=== PATIENT | male | born 1955 | race Caucasian/White ===

== ENCOUNTER 2020-12-01 16:36 | Inpatient (IN) | payer MEDICARE, OTHER ==
[~2020-12-01 16:36] MED LIST: Iopamidol-370 76% 500 ML 1 ML ONE
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
[2020-12-01 16:58] LABS: #Basophils 0.1 thou/uL (0.0-0.2); #Lymphocytes 1.8 thou/uL (1.20-3.40); #Monocytes 0.7 thou/uL (0.11-0.59); #Neutrophils 7.1 thou/uL (1.40-6.50); %Basophils 0.6 % (0.0-1.0); %Eosinophils 0.4 % (0.0-10.0); %Lymphocytes 18.7 % (21.0-51.0); %Monocytes 7.1 % (0.0-10.0); %Neutrophils 73.2 % (42.0-75.0); Hemoglobin 12.5 g/dL (14.0-18.0); Mean Corpuscular HGB CONC 31.5 g/dL (32.0-36.0); Mean Corpuscular Hemoglobin 22.1 pg (27.0-31.0); Mean Corpuscular Volume 70.3 fL (78.0-98.0); Mean Platelet Volume 6.9 fL (7.4-10.4); Platelet Count 506 thou/uL (130-400); RBC Distribution Width 13.7 % (11.5-14.5); Red Blood Cell (RBC) Count 5.65 mill/uL (4.70-6.10); White Blood Cell (WBC) Count 9.7 thou/uL (4.8-10.8)
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
[2020-12-01 17:05] LABS: ALT (SGPT) 28 U/L (8-55); AST (SGOT) 23 U/L (5-34); Albumin 3.8 g/dL (3.4-4.8); Alcohol Less than 10 mg/dL (Less than 10); Alkaline Phosphatase 56 U/L (40-110); Anion Gap 20 mmol/L (10-20); BUN (Urea Nitrogen) 11 mg/dL (8.4-25.7); Bilirubin, Total 0.7 mg/dL (0.2-1.2); Calc. Creatinine Clearance 0 mL/min (70-130); Calcium 8.5 mg/dL (7.8-10.44); Carbon Dioxide 23 mmol/L (23-31); Chloride 85 mmol/L (98-107); Globulin 3.2 g/dL (2.4-3.5); Glucose 134 mg/dL (80-115); Sodium 125 mmol/L (136-145)
[2020-12-01 17:13] LABS: Potassium 2.7 mmol/L (3.5-5.1)
[2020-12-01 17:17] LABS: Hypochromia SLIGHT = 6-15 cells (100X) (0-5/hpf); MDiff Complete? YES; Microcytosis MODERATE=15-30 cells (100X) (0-5/hpf); Platelet Morphology Comment Appears Increased; Polychromasia SLIGHT = 2-3 cells (100X) (0-2/hpf)
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
[2020-12-01] MEDS ORDERED: Potassium Chloride 20 MEQ TAB ONE ×2 (17:32→17:47)
[2020-12-01 18:22] LABS: SARS-CoV-2 NAA Rapid Test DETECTED (NotDetected)
[2020-12-01] MEDS ORDERED: Ondansetron PF 4 MG/2 ML Vial IVP PRN (18:42)
[2020-12-01] MEDS ORDERED: Senokot S 8.6-50 MG TAB PO PRN (18:42)
[2020-12-01 19:48] LABS: Bilirubin Negative (Negative); Blood, Urine Negative (Negative); Clarity Clear (Clear); Glucose, Urine (Dipstick) Normal (Negative); Ketone, Urine 60 mg/dL (Negative); Leukocyte Negative Leu/uL (Negative); Nitrite Negative (Negative); Protein, Urine (Dipstick) Negative (Neg-Trace); Urobilinogen Normal mg/dL (Less than 2); pH, Urine 6.5 (5.0-9.0)
[2020-12-01] MEDS ORDERED: Lorazepam 2 MG/ML VIAL SLOW IVP PRN (19:53)
[2020-12-01 20:00] LABS: Amphetamine Not Detected (NotDetected); Barbiturates Screen Not Detected (NotDetected); Benzodiazepine Screen Not Detected (NotDetected); Cocaine Metabolite Screen Not Detected (NotDetected); Medtox Control Line Valid? VALID (VALID); Medtox Reader # READER 1; Methadone Not Detected (NotDetected); Methamphetamine Not Detected (NotDetected); Opiate Screen Not Detected (NotDetected); Oxycodone Screen Not Detected (NotDetected); Phencyclidine (PCP) Not Detected (NotDetected); THC/Cannabinoid Screen Detected (NotDetected); Tricyclic Screen Not Detected (NotDetected)
[2020-12-01] MEDS ORDERED: Potassium Citrate 10 MEQ TAB PO SCH (20:00)
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
[2020-12-01 22:01] LABS: Anion Gap 12 mmol/L (10-20); BUN (Urea Nitrogen) 10 mg/dL (8.4-25.7); Calc. Creatinine Clearance 0 mL/min (70-130); Carbon Dioxide 28 mmol/L (23-31); Chloride 88 mmol/L (98-107); Glucose 139 mg/dL (80-115); Sodium 125 mmol/L (136-145)
[2020-12-01 22:07] LABS: Potassium 2.8 mmol/L (3.5-5.1); Troponin I Less than 0.010 ng/mL (< 0.028)
[2020-12-01] MEDS: Famotidine 20 MG TAB PO SCH (22:36)
[2020-12-02] MEDS: NS 0.9% w/ 40 MEQ KCL 1,000 ML IV SCH ×2 (00:24→12:06)
[2020-12-02 01:30] VITALS: BMI 29.9
[2020-12-02 01:38] LABS: Troponin I 0.021 ng/mL (< 0.028)
[2020-12-02 05:32] LABS: Anion Gap 14 mmol/L (10-20); BUN (Urea Nitrogen) 8 mg/dL (8.4-25.7); Calc. Creatinine Clearance 127 mL/min (70-130); Calcium 8.3 mg/dL (7.8-10.44); Carbon Dioxide 29 mmol/L (23-31); Chloride 91 mmol/L (98-107); Glucose 96 mg/dL (80-115); Magnesium 2.3 mg/dL (1.6-2.6); Potassium 3.5 mmol/L (3.5-5.1); Sodium 130 mmol/L (136-145)
[2020-12-02 06:16] LABS: Band 3 % (5-11); Hemoglobin 11.6 g/dL (14.0-18.0); Lymphocytes 21 % (21-51); MDiff Complete? YES; Mean Corpuscular Hemoglobin 22.9 pg (27.0-31.0); Mean Corpuscular Volume 71.6 fL (78.0-98.0); Mean Platelet Volume 6.9 fL (7.4-10.4); Monocytes 10 % (0-10); Neutrophil 65 % (42-75); Platelet Count 445 thou/uL (130-400); RBC Distribution Width 13.7 % (11.5-14.5); Reactive Lymphocytes 1 % (0-10); Red Blood Cell (RBC) Count 5.06 mill/uL (4.70-6.10); White Blood Cell (WBC) Count 7.9 thou/uL (4.8-10.8)
[2020-12-02] MEDS: NS 0.9% w/ 40 MEQ KCL 100 ML IV SCH ×2 (07:19→07:20)
[2020-12-02] MEDS: Cholecalciferol 1,000 UNITS (25 MCG) TAB PO SCH (09:09)
[2020-12-02] MEDS: Dexamethasone 4 mg/ml Vial SLOW IVP SCH (09:10)
[2020-12-02] MEDS: Zinc Sulfate 220 MG CAP PO SCH (09:10)
[2020-12-02] MEDS: Famotidine 20 MG TAB PO SCH ×2 (09:10→20:03)
[2020-12-02] MEDS: Ascorbic Acid 500 mg Chewable Tablet PO SCH (09:15)
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
--- NOTE | 2020-12-02 18:03 | PDOC.BPN ---
- Brief Progress Note pt had black stool - stable hgb- OBT ordered.
[2020-12-03] MEDS: Acetaminophen 325 MG TAB PO PRN ×2 (00:21→04:19)
[2020-12-03 05:48] LABS: Anion Gap 11 mmol/L (10-20); BUN (Urea Nitrogen) 10 mg/dL (8.4-25.7); Calc. Creatinine Clearance 127 mL/min (70-130); Calcium 8.4 mg/dL (7.8-10.44); Carbon Dioxide 30 mmol/L (23-31); Chloride 90 mmol/L (98-107); Glucose 104 mg/dL (80-115); Potassium 3.4 mmol/L (3.5-5.1); Sodium 128 mmol/L (136-145)
[2020-12-03] MEDS ORDERED: HYDROcodone/Acetaminophen 5/325 mg Tablet PO PRN (06:15)
[2020-12-03] MEDS ORDERED: Morphine 2 MG/ML VIAL SLOW IVP PRN (06:15)
[2020-12-03] MEDS: Ascorbic Acid 500 mg Chewable Tablet PO SCH (08:28)
[2020-12-03] MEDS: Cholecalciferol 1,000 UNITS (25 MCG) TAB PO SCH (08:28)
[2020-12-03] MEDS: Zinc Sulfate 220 MG CAP PO SCH (08:28)
[2020-12-03] MEDS: Dexamethasone 4 mg/ml Vial SLOW IVP SCH (08:28)
[2020-12-03] MEDS: Famotidine 20 MG TAB PO SCH (10:06)
[2020-12-03 11:12] LABS: #Lymphocytes 1.2 thou/uL (1.20-3.40); #Monocytes 0.5 thou/uL (0.11-0.59); #Neutrophils 8.5 thou/uL (1.40-6.50); %Basophils 0.2 % (0.0-1.0); %Eosinophils 0.4 % (0.0-10.0); %Monocytes 5.3 % (0.0-10.0); %Neutrophils 82.1 % (42.0-75.0); Hemoglobin 12.2 g/dL (14.0-18.0); Mean Corpuscular HGB CONC 32.9 g/dL (32.0-36.0); Mean Corpuscular Hemoglobin 23.4 pg (27.0-31.0); Mean Corpuscular Volume 71.2 fL (78.0-98.0); Mean Platelet Volume 6.8 fL (7.4-10.4); Platelet Count 494 thou/uL (130-400); RBC Distribution Width 13.7 % (11.5-14.5); Red Blood Cell (RBC) Count 5.21 mill/uL (4.70-6.10); White Blood Cell (WBC) Count 10.3 thou/uL (4.8-10.8)
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
[2020-12-04 10:40] LABS: Anion Gap 17 mmol/L (10-20); BUN (Urea Nitrogen) 11 mg/dL (8.4-25.7); Calc. Creatinine Clearance 127 mL/min (70-130); Calcium 8.7 mg/dL (7.8-10.44); Carbon Dioxide 23 mmol/L (23-31); Chloride 92 mmol/L (98-107); Glucose 144 mg/dL (80-115); Potassium 3.2 mmol/L (3.5-5.1); Sodium 129 mmol/L (136-145)
[2020-12-04] MEDS: Cholecalciferol 1,000 UNITS (25 MCG) TAB PO SCH (10:41)
[2020-12-04] MEDS: Zinc Sulfate 220 MG CAP PO SCH (10:41)
[2020-12-04] MEDS: Acetaminophen 325 MG TAB PO PRN (10:41)
[2020-12-04] MEDS: Ascorbic Acid 500 mg Chewable Tablet PO SCH (10:42)
[2020-12-04] MEDS ORDERED: Potassium Chloride 20 MEQ TAB PO SCH (13:15)
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
[2020-12-04 22:28] VITALS: BP 157/67; TEMP 97.9
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
--- NOTE | 2020-12-24 16:39 | EKG ---
Test Reason : Blood Pressure : / mmHG Vent. Rate : 078 BPM Atrial Rate : 078 BPM P-R Int : 184 ms QRS Dur : 116 ms QT Int : 434 ms P-R-T Axes : 059 -73 078 degrees QTc Int : 494 ms Normal sinus rhythm Nonspecific ST abnormality Prolonged QT Abnormal ECG Confirmed by SYD GARRIDO, PATRICK Ramires ([id number]), newspaper copy editor VALENTINA SANDHU ([id number]) on 12/24/2020 4:38:35 PM Referred By: SYD Confirmed By:PATRICK VELARDE MD
== END 2020-12-04 21:12 | disposition home or self-care (01) | DRG 177 ==
LOC: ERS 16:36 → ERHOLD 17:52 → 2SW 21:14
PROVIDERS: ADMIT Internal Medicine; ATTEND Internal Medicine
PROC: 8E0ZXY6 Isolation (ICD-10-PCS; principal; 2020-12-02)
DX: U07.1 COVID-19 (principal); J12.82 Pneumonia due to coronavirus disease 2019; E22.2 Syndrome of inappropriate secretion of antidiuretic hormone; I10 Essential (primary) hypertension; F17.210 Nicotine dependence, cigarettes, uncomplicated; E87.6 Hypokalemia; D69.6 Thrombocytopenia, unspecified; R56.9 Unspecified convulsions; S20.212A Contusion of left front wall of thorax, initial encounter; M79.672 Pain in left foot; V54.5XXA Driver of pick-up truck or van injured in collision with heavy transport vehicle or bus in traffic accident, initial encounter; Y92.410 Unspecified street and highway as the place of occurrence of the external cause; Z79.899 Other long term (current) drug therapy
CPT/HCPCS: 0240U; 36415; 70450; 71045; 71260; 72125; 72170; 74177; 80048; 80053; 80306; 80307; 81003; 82270; 83735; 84484; 85007; 85025; 85027; 93005; 94760; G0390; J1100; J3480; Q9967

== ENCOUNTER 2021-08-15 12:39 | Outpatient (CLI) | payer MEDICARE, OTHER | END 2021-08-15 12:40 | disposition home or self-care (01) | LOC: TBSIIMAG 12:39 | PROVIDERS: ATTEND Neurological Surgery | DX: M54.2 Cervicalgia (principal); Z98.1 Arthrodesis status; G95.89 Other specified diseases of spinal cord; M48.02 Spinal stenosis, cervical region | CPT/HCPCS: 72050; 72141 ==

== ENCOUNTER 2021-10-31 12:43 | Outpatient (CLI) | payer MEDICARE, OTHER ==
[2021-10-31 14:51] LABS: Hemoglobin 14.1 g/dL (13.5-17.5); Mean Corpuscular HGB CONC 32.8 g/dL (32.0-36.0); Mean Corpuscular Hemoglobin 23.1 pg (27.0-33.0); Mean Corpuscular Volume 70.4 fl (81.2-95.1); Mean Platelet Volume 9.5 fl (7.4-10.4); Platelet Count 307 10x3/uL (150-450); RBC Distribution Width 17.5 % (11.5-14.5); Red Blood Cell (RBC) Count 6.11 10x6/uL (4.32-5.72); White Blood Cell (WBC) Count 10.2 10x3/uL (3.5-10.5)
[2021-10-31 14:55] LABS: PTT 26.2 sec (22.0-33.0); Prothrombin Time 10.9 sec (9.5-12.1)
[2021-10-31 23:30] LABS: SARS-CoV-2 PCR by NAA Not Detected (NotDetected)
== END 2021-10-31 12:44 | disposition home or self-care (01) ==
LOC: LABBT 12:43
PROVIDERS: ATTEND Neurological Surgery
DX: Z01.812 Encounter for preprocedural laboratory examination (principal); Z20.822 Contact with and (suspected) exposure to COVID-19
CPT/HCPCS: 85027; 85610; 85730; U0003; U0005

== ENCOUNTER 2021-11-03 09:51 | Day surgery (SDC) | payer MEDICARE, OTHER ==
[2021-11-01 11:21] VITALS: BMI 33.7
[2021-11-03] MEDS ORDERED: ceFAZolin 2 GM/DEX 5% 100 ML BAG ONE (11:07)
[2021-11-03] MEDS ORDERED: Neomycin-Polymyxin 1 ML AMP ONE (11:23)
[2021-11-03] MEDS ORDERED: Lidocaine 1% (PF) 30 ML VIAL ONE (11:23)
[2021-11-03] MEDS ORDERED: HYDROmorphone 0.5 MG/0.5 ML SYRINGE ONE (12:03)
[2021-11-03] MEDS ORDERED: Fentanyl 100 MCG/2 ML VIAL ONE (12:03)
[2021-11-03] MEDS ORDERED: Glycopyrrolate 0.2 MG/ML 5 ML SYRINGE ONE (12:16)
[2021-11-03] MEDS ORDERED: Lidocaine 1% PF 5 ML VIAL ONE (12:16)
[2021-11-03] MEDS ORDERED: PROPOFOL 200 MG/20 ML VIAL ONE (12:16)
[2021-11-03] MEDS ORDERED: Dexamethasone 20 MG/5 ML VIAL ONE (12:16)
[2021-11-03] MEDS ORDERED: Ondansetron PF 4 MG/2 ML Vial ONE (12:16)
[2021-11-03] MEDS ORDERED: Midazolam HCl 2 mg/2 ml Vial ONE (12:18)
== END 2021-11-03 14:30 | disposition home or self-care (01) ==
LOC: SDC 09:51
PROVIDERS: ATTEND Neurological Surgery
PROC: 01N50ZZ Release Median Nerve, Open Approach (ICD-10-PCS; principal; 2021-11-03)
DX: G56.02 Carpal tunnel syndrome, left upper limb (principal); M19.90 Unspecified osteoarthritis, unspecified site; I10 Essential (primary) hypertension; M62.08 Separation of muscle (nontraumatic), other site; M54.2 Cervicalgia; Z79.899 Other long term (current) drug therapy; Z98.1 Arthrodesis status
CPT/HCPCS: 93005; 93010; J1100; J1170; J2001; J2250; J2405; J2704; J3010